=== PATIENT | male | born 1975 | race Caucasian/White ===

== ENCOUNTER → 2018-08-26 07:58 | Outpatient (CLI) | payer OTHER, SELFPAY ==
[2018-08-26 08:24] LABS: Add Manual Diff / Slide Review NO; Basophils Percent Auto 0.4 % (0-2); Eosinophils Percent Auto 2.5 % (2-4); Hemoglobin 16.2 g/dL (13.5-17.5); Lymphocytes Percent Auto 25.9 % (25-40); Mean Corpuscular HGB Conc 34.5 % (30-36); Mean Corpuscular Hemoglobin 30.6 PG (26-34); Mean Corpuscular Volume 88.8 fL (80-100); Monocytes Percent Auto 9.1 % (3-14); Neutrophils Absolute Auto 5600 /uL (1500-7000); Neutrophils Percent Auto 62.1 % (50-75); Platelet Count 305 X10^3/uL (150-400); Red Blood Cell Count 5.29 X10^6/uL (4.5-5.9); Red Cell Distribution Width 12.3 % (11.6-14.8)
[2018-08-26 08:31] LABS: Appearance Urine UA CLEAR; Bilirubin Urine UA NEGATIVE (NEGATIVE); Color Urine UA YELLOW; Glucose Urine UA NEGATIVE (Normal); Ketones Urine UA NEGATIVE (NEGATIVE); Leukocyte Esterase Urine UA NEGATIVE (NEGATIVE); Nitrite Urine UA NEGATIVE (Negative); Occult Blood Urine UA NEGATIVE (Negative); Protein Urine UA NEGATIVE (Negative); Urobilinogen Urine UA 0.2 E.U./dL (0.2)
[2018-08-26 08:43] LABS: Alanine Aminotransferase 57 IU/L (21-72); Albumin 4.7 g/dL (3.5-5.0); Albumin Globulin Ratio 1.4 (1.0-2.8); Alkaline Phosphatase 70 U/L (38-126); Aspartate Aminotransferase 40 IU/L (17-59); Bilirubin Total 0.5 mg/dL (0.2-1.3); Blood Urea Nitrogen 22 mg/dL (9-20); Carbon Dioxide 31 mmol/L (22-32); Chloride 101 mmol/L (98-107); Cholesterol 217 mg/dL (140-199); Estimated Glomerular Filt Rate > 60.0 mL/min (>60); Globulin 3.3 g/dL (1.7-4.1); Glucose 102 mg/dL (70-100); HDL Cholesterol 54 mg/dL (40-60); HEMOLYSIS < 15 (0-50); LDL Cholesterol Calculated 143 mg/dL (<100); Potassium 5.8 mmol/L (3.4-5.1); Sodium 143 mmol/L (137-145); Triglycerides 101 mg/dL (35-150)
[2018-08-26 09:13] LABS: Thyroid Stimulating Hormone 1.09 uIU/mL (0.47-4.68)
== END ==
PROVIDERS: PCP Family Medicine; Visit Provider Family Medicine
DX: F98.8 Other specified behavioral and emotional disorders with onset usually occurring in childhood and adolescence (principal); Z13.220 Encounter for screening for lipoid disorders; Z51.81 Encounter for therapeutic drug level monitoring; Z13.29 Encounter for screening for other suspected endocrine disorder
CPT/HCPCS: 36415; 80053; 80061; 81003; 84443; 85025

== ENCOUNTER → 2018-09-02 10:13 | Outpatient (CLI) | payer OTHER, SELFPAY ==
[2018-09-02 11:42] LABS: HEMOLYSIS < 15 (0-50); Potassium 4.5 mmol/L (3.4-5.1)
== END ==
PROVIDERS: PCP Family Medicine; Visit Provider Family Medicine
DX: E87.5 Hyperkalemia (principal)
CPT/HCPCS: 36415; 84132

== ENCOUNTER → 2019-10-22 09:02 | Outpatient (CLI) | payer OTHER, SELFPAY ==
[2019-10-22 09:33] LABS: Add Manual Diff / Slide Review NO; Basophils Absolute Auto 0 /uL (0-100); Basophils Percent Auto 0.5 % (0-2); Eosinophils Absolute Auto 100 /uL (0-450); Eosinophils Percent Auto 1.9 % (2-4); Hematocrit 47.7 % (41-53); Hemoglobin 16.4 g/dL (13.5-17.5); Lymphocytes Absolute Auto 2600 /uL (1100-4500); Lymphocytes Percent Auto 41.5 % (25-40); Mean Corpuscular HGB Conc 34.3 % (30-36); Mean Corpuscular Hemoglobin 30.5 PG (26-34); Mean Corpuscular Volume 88.7 fL (80-100); Monocytes Absolute Auto 700 /uL (0-900); Monocytes Percent Auto 11.6 % (3-14); Neutrophils Absolute Auto 2700 /uL (1500-7000); Neutrophils Percent Auto 44.5 % (50-75); Platelet Count 350 X10^3/uL (150-400); Red Blood Cell Count 5.38 X10^6/uL (4.5-5.9); Red Cell Distribution Width 12.3 % (11.6-14.8); White Blood Cell Count 6.2 X10^3/uL (4.5-11.0)
[2019-10-22 10:18] LABS: Alanine Aminotransferase 36 IU/L (<50); Albumin 4.7 g/dL (3.5-5.0); Albumin Globulin Ratio 1.4 (1.0-2.8); Alkaline Phosphatase 83 U/L (38-126); Aspartate Aminotransferase 35 IU/L (17-59); BUN Creatinine Ratio 17.8 (6-22); Bilirubin Total 0.6 mg/dL (0.2-1.3); Blood Urea Nitrogen 16 mg/dL (9-20); Calcium 10.3 mg/dL (8.4-10.2); Carbon Dioxide 29 mmol/L (22-32); Chloride 103 mmol/L (98-107); Cholesterol 230 mg/dL (140-199); Estimated Glomerular Filt Rate > 60.0 mL/min (>60); Globulin 3.3 g/dL (1.7-4.1); Glucose 97 mg/dL (70-100); HDL Cholesterol 57 mg/dL (40-60); HEMOLYSIS < 15 (0-50); LDL Cholesterol Calculated 158 mg/dL (<100); Potassium 4.5 mmol/L (3.4-5.1); Sodium 143 mmol/L (137-145); Triglycerides 74 mg/dL (35-150)
[2019-10-22 10:45] LABS: Thyroid Stimulating Hormone 2.56 uIU/mL (0.47-4.68)
== END ==
PROVIDERS: Family Provider Family Medicine; PCP Family Medicine; Referring Provider Family Medicine; Visit Provider Family Medicine
DX: F98.8 Other specified behavioral and emotional disorders with onset usually occurring in childhood and adolescence (principal); H18.419 Arcus senilis, unspecified eye; E78.5 Hyperlipidemia, unspecified
CPT/HCPCS: 36415; 80053; 80061; 84443; 85025

== ENCOUNTER 2023-05-08 10:40 | Day surgery (SDC) | payer OTHER, SELFPAY ==
--- NOTE | 2023-05-08 | PATH_ITS ---
[facility] Accession Number: [id number] No. of containers..01 Tissue . 01 Material submitted: . rectum - SMALL RECTAL POLYP . 01 Diagnosis: Small Rectal Polyp, Biopsy: Colonic mucosa with superficial mucosal hyperplasia, suggestive of early development of hyperplastic polyp. [facility] 05/14/2023 1724 Local . 01 Electronically signed: . Erika Reed MD, Pathologist NPI- [id number] . 01 Gross description: . Received one formalin-filled container, no identification on container, ID confirmed per client, source designated small rectal polyp per requisition. The specimen consists of two spring-choudhury fragments of soft tissue which range in size from 0.2 x 0.2 x 0.2 cm to 0.3 x 0.2 x 0.2 cm. All fragments are totally submitted in one cassette. ([id number]) /[facility] 05/13/2023 0303 Local . 01 Pathologist provided ICD-10: D12.8 . 01 CPT . 375898 Specimen Comment: A courtesy copy of this report has been sent to [facility] Pathology Performed at: 01 [facility] [address] [place] [address], [place], [place] [id number] MD Ajit Lackey MD Phone: [phone]
[2023-05-08 11:05] VITALS: BP 140/97; PULSE 86; RESP 16; TEMP 35.9; O2SAT 100; BMI 25.8
[2023-05-08] MEDS: LACTATED RINGERS 1,000 ML 84 ML IV (11:21)
--- NOTE | 2023-05-08 13:20 | P.HP_ITS ---
History of Present Illness History of Present Illness Date Patient Seen: 05/08/23 Time Patient Seen: 13:21 Chief complaint: Colonoscopy Narrative: Mr. Hassan is a 47-year-old healthy male who presents for his 1st colonoscopy. He has a maternal grandfather who was diagnosed with colon cancer. He has 2 sisters 1 of which has had her colonoscopy he is not aware that they had a polyps. He denies any concerning symptoms. [facility] Medical History (Updated 05/08/23 @ 13:22 by Sara Harden MD) ADD (attention deficit disorder) Inguinal hernia (~2010) Moderate mixed hyperlipidemia not requiring statin therapy Surgical History Hx of hernia repair (07/2011) Hx of vasectomy (10/2015) Social History household members: spouse Smoking Status: Current every day smoker (chews tobacco) Tobacco: How many years used: 23 Smokeless tobacco user: chewing tobacco alcohol intake: current Meds Home Medications and Allergies Home Medications Medication Instructions Recorded Confirmed Type dextroamphetamine-amphetamine 10 10 mg PO DAILY #30 tabs 04/10/23 05/08/23 Rx mg tablet dextroamphetamine-amphetamine ER 25 mg PO DAILY #30 caps 04/10/23 05/08/23 Rx 25 mg 24hr capsule,extend release (Adderall XR) Allergies Allergy/AdvReac Type Severity Reaction Status Date / Time No Known Drug Allergies Allergy Verified 05/08/23 11:18 Exam Vital Signs (past 8 hours): - 05/08/23 11:05 Temperature 96.6 F L Pulse Rate 86 Respiratory Rate 16 Blood Pressure 140/97 H Pulse Oximetry 100 Oxygen Delivery Method Room Air Oxygen Delivery Method Room Air Const General: cooperative, healthy appearing and comfortable Nutritional Appearance: average body habitus Orientation: awake and oriented x3 HENMT Head: normal to inspection Eyes General: appearance normal, both eyes and all related structures Neck Neck: normal visual inspection Resp Effort & Inspection: normal respiratory effort and able to speak in complete sentences GI Palpation: soft and No tender Assessment & Plan Assessment and plan (1) Colon cancer screening: Status: Acute Assessment & Plan narrative: Presents today for screening colonoscopy I discussed the risks benefits and alternatives including but not limited to perforation of the colon and an incomplete exam he fully understands these risks and would like to proceed.
[2023-05-08 14:14] VITALS: BP 94/63; PULSE 77; RESP 20; TEMP 36.4; O2SAT 96
[2023-05-08 14:19] VITALS: BP 98/66; PULSE 76; RESP 18; O2SAT 97
--- NOTE | 2023-05-08 14:23 | PM.OP.COLON ---
Operative Date/Time/Diagnoses Date of procedure: 05/08/23 Time of procedure: 14:23 Pre-op diagnosis: Colon cancer screening, maternal grandfather with colon cancer Post-op diagnosis: same Procedure & Clinicians Study performed: Colonoscopy and biopsy Same procedure as scheduled: Yes Indications: Screening for colon cancer, maternal grandfather with colon cancer Surgeon: Sara Harden Procedure Notes Procedure in detail: Patient was taken to the endoscopy suite and placed in a left lateral decubitus position. A time-out was performed. With the help of anesthesiologist conscious sedation was induced and monitored throughout the case. A digital rectal exam was performed and there were no masses or strictures. The colonoscope was introduced into the anal canal and advanced through to the cecum. A small rectal polyp was seen upon entry and removed with the biopsy forceps, prior to advancing the scope through to the cecum. A photograph of the appendiceal orifice was obtained. The bowel prep was good [place] bowel prep score of 2. The scope was then withdrawn for a total of 11 minutes and no polyps were seen. There were several scattered diverticula which were photographed in the sigmoid colon. The scope was then retroflexed and a photograph of the internal hemorrhoidal piles was obtained. Findings: divertiulosis and polyp(s) Specimen(s): other (Small rectal polyp) Complications: none Post-procedure Recommendations: Colonoscopy in 5 years Plan for aftercare: Most likely follow-up interval will be 5 years because of your family history of colon cancer. One small polyp the pathology shows a tubular adenoma would mean a 7 year follow-up but with your family history 5 years is the most prudent recommendation. There were also scattered diverticula which is generally an incidental finding, but a good reason in addition to polyps to recommend a daily fiber supplement.
[2023-05-08 14:24] VITALS: BP 99/70; PULSE 68; RESP 18; O2SAT 98
[2023-05-08 14:29] VITALS: BP 107/70; PULSE 63; RESP 16; TEMP 36.4; O2SAT 99
[2023-05-08 14:35] VITALS: BP 113/77; PULSE 66; RESP 14; TEMP 36.2; O2SAT 100
== END 2023-05-08 14:50 | disposition home or self-care (01) ==
PROVIDERS: Family Provider Family Medicine; PCP Student in an Organized Health Care Education/Training Program; Referring Provider Surgery; Visit Provider Surgery
PROC: 0DJD8ZZ Inspection of Lower Intestinal Tract, Via Natural or Artificial Opening Endoscopic (ICD-10-PCS; CPT 45378; principal; 2023-05-08 11:30)
DX: Z12.11 Encounter for screening for malignant neoplasm of colon (principal); K57.30 Diverticulosis of large intestine without perforation or abscess without bleeding; K62.1 Rectal polyp
CPT/HCPCS: 45380; J2704

== ENCOUNTER → 2023-07-07 08:33 | Outpatient (CLI) | payer OTHER, SELFPAY ==
[2023-07-07 11:11] LABS: Alanine Aminotransferase 64 IU/L (<50); Albumin 4.4 g/dL (3.5-5.0); Albumin Globulin Ratio 1.5 (1.0-2.8); Alkaline Phosphatase 74 U/L (38-126); Aspartate Aminotransferase 47 IU/L (17-59); BUN Creatinine Ratio 19.2 (6-22); Bilirubin Total 0.5 mg/dL (0.2-1.3); Blood Urea Nitrogen 15 mg/dL (9-20); Calcium 9.5 mg/dL (8.4-10.2); Carbon Dioxide 26 mmol/L (22-32); Chloride 102 mmol/L (98-107); Cholesterol 220 mg/dL (140-199); Estimated Glomerular Filt Rate > 60 mL/min (>60); Globulin 2.9 g/dL (1.7-4.1); Glucose 97 mg/dL (70-100); HDL Cholesterol 61 mg/dL (40-60); HEMOLYSIS < 15 (0-50); LDL Cholesterol Calculated 153 mg/dL (<100); Potassium 4.4 mmol/L (3.4-5.1); Sodium 138 mmol/L (137-145); Total Protein 7.3 g/dL (6.3-8.2); Triglycerides 31 mg/dL (35-150)
== END ==
PROVIDERS: Family Provider Family Medicine; PCP Family Medicine; Referring Provider Family Medicine; Visit Provider Family Medicine
DX: Z00.00 Encounter for general adult medical examination without abnormal findings (principal)
CPT/HCPCS: 36415; 80053; 80061

== ENCOUNTER → 2024-06-10 07:47 | Outpatient (CLI) | payer BC, SELFPAY ==
[2024-06-10 08:46] LABS: BUN Creatinine Ratio 18.4 (6-22); Blood Urea Nitrogen 16 mg/dL (9-20); Calcium 9.7 mg/dL (8.4-10.2); Carbon Dioxide 28 mmol/L (22-32); Chloride 101 mmol/L (98-107); Cholesterol 202 mg/dL (140-199); Estimated Glomerular Filt Rate > 60 mL/min (>60); Glucose 103 mg/dL (70-100); HDL Cholesterol 56 mg/dL (40-60); HEMOLYSIS < 15 (0-50); LDL Cholesterol Calculated 137 mg/dL (<100); Potassium 4.5 mmol/L (3.4-5.1); Sodium 136 mmol/L (137-145); Triglycerides 46 mg/dL (35-150)
[2024-06-10 09:37] LABS: HIV 1 & 2 Ab/Ag 4th Gen Combo NEGATIVE (NEGATIVE); Hep C Virus Ab w/Reflex Quant NEGATIVE s/c (NEGATIVE)
== END ==
PROVIDERS: Family Provider Family Medicine; PCP Family Medicine; Referring Provider Family Medicine; Visit Provider Family Medicine
DX: F10.21 Alcohol dependence, in remission (principal); F98.8 Other specified behavioral and emotional disorders with onset usually occurring in childhood and adolescence; Z13.9 Encounter for screening, unspecified; Z11.4 Encounter for screening for human immunodeficiency virus [HIV]; Z11.59 Encounter for screening for other viral diseases
CPT/HCPCS: 36415; 80048; 80061; 86803; 87389